=== PATIENT | female | born 1945 | race Caucasian/White ===

== ENCOUNTER → 2021-11-16 | Outpatient (CLI) | payer MEDICARE, OTHER, SELFPAY ==
[2021-11-16 12:39] LABS: Hematocrit 38.3 % (37-47); Hemoglobin 12.3 g/dL (12.0-15.0); Mean Corp Hgb Conc 32.1 g/dL (32-36); Mean Corpuscular Hgb 30.4 pg (27.0-32.0); Mean Corpuscular Volume 94.8 fL (81-99); Mean Platelet Vol. 10.8 fl (6.2-12.0); Platelet Count 223 K/mm3 (150-450); RBC Distribution Width CV 12.8 % (11.6-14.6); RBC Distribution Width SD 44.4 fl (35.1-43.9); Red Blood Count 4.04 M/mm3 (4.2-5.4); White Blood Count 6.5 K/mm3 (4.4-11.0)
[2021-11-16 13:21] LABS: Vitamin B12 874 pg/mL (211-911)
[2021-11-16 13:42] LABS: ALB/GLOB Ratio 1.2 RATIO (0.9-2.4); AST(SGOT) 32 U/L (15-37); Alanine Aminotransfer ALT/SGPT 39 U/L (13-56); Albumin, Serum 3.5 g/dL (3.2-5.0); Alkaline Phosphatase 48 U/L (45-117); Anion Gap 5 (5-15); BUN 16 mg/dL (7-18); BUN/Creat Ratio 21.2 RATIO (10-20); Calcium,Total 9.2 mg/dL (8.5-10.1); Chloride 105 mmol/L (98-107); Creatinine, Serum 0.76 mg/dL (0.55-1.02); EST Glomerular Filtration Rate 79 mL/min (>60); Est Glom Filt Rate - Afr Amer 95 mL/min (>60); Glucose 88 mg/dL (74-106); Potassium 3.6 mmol/L (3.5-5.1); Protein, Total 6.5 g/dL (6.4-8.2); Sodium Level 141 mmol/L (136-145); Thyroid Stim Hormone (TSH) 1.42 uIU/mL (0.358-3.74)
[2021-11-21 16:09] LABS: Free Kappa Light Chains 13.1 mg/L (3.3-19.4); Free Lambda Light Chains 9.3 mg/L (5.7-26.3)
[2021-11-22 12:25] LABS: Vitamin B1, Thiamine 196.1 nmol/L (66.5-200.0)
== END | disposition home or self-care (01) ==
LOC: MTLAB 09:55
PROVIDERS: Referring Provider Psychiatry & Neurology Neurology; Visit Provider Psychiatry & Neurology Neurology
DX: I10 Essential (primary) hypertension (principal); G62.9 Polyneuropathy, unspecified
CPT/HCPCS: 36415; 80053; 82607; 82746; 83883; 84425; 84443; 85027

== ENCOUNTER → 2023-03-14 | Outpatient (CLI) | payer MEDICARE, OTHER, SELFPAY ==
[2023-03-14 17:34] LABS: Hematocrit 42.4 % (37-47); Mean Corpuscular Hgb 31.5 pg (27.0-32.0); Mean Corpuscular Volume 95.5 fL (81-99); Platelet Count 324 K/mm3 (150-450); RBC Distribution Width CV 12.4 % (11.6-14.6); RBC Distribution Width SD 43.9 fl (35.1-43.9); Red Blood Count 4.44 M/mm3 (4.2-5.4); White Blood Count 15.3 K/mm3 (4.4-11.0)
[2023-03-14 17:44] LABS: Erythrocyte Sedimentation Rate 4 mm/hr (0-30)
[2023-03-14 18:25] LABS: Ionized Calcium 5.19 mg/dL (4.36-5.20)
[2023-03-14 18:44] LABS: ALB/GLOB Ratio 1.1 RATIO (0.9-2.4); AST(SGOT) 19 U/L (15-37); Alanine Aminotransfer ALT/SGPT 30 U/L (13-56); Albumin, Serum 3.6 g/dL (3.2-5.0); Alkaline Phosphatase 95 U/L (45-117); Anion Gap 8 (5-15); BUN 32 mg/dL (7-18); CPK Total, Creatine Kinase 66 U/L (26-192); CRP < 2.90 mg/L (0.0-3.0); Calcium,Total 9.4 mg/dL (8.5-10.1); Chloride 104 mmol/L (98-107); Creatinine, Serum 0.89 mg/dL (0.55-1.02); EST Glomerular Filtration Rate 65 mL/min (>60); Est Glom Filt Rate - Afr Amer 79 mL/min (>60); Free T3 1.9 pg/mL (2.18-3.98); Globulin 3.2 g/dL (2.2-4.2); Glucose 96 mg/dL (74-106); Magnesium 2.7 mg/dL (1.6-2.6); Phosphorus 3.3 mg/dL (2.5-4.9); Potassium 3.7 mmol/L (3.5-5.1); Protein, Total 6.8 g/dL (6.4-8.2); Sodium Level 139 mmol/L (136-145); T4 Free Direct 0.97 ng/dL (0.76-1.46); Thyroid Stim Hormone (TSH) 1.42 uIU/mL (0.358-3.74)
[2023-03-14 23:54] LABS: Ionized Calcium Order ORDER TUBE
[2023-03-15 09:52] LABS: PTHIN 35.1 pg/mL (18.4-80.1)
[2023-03-18 11:08] LABS: Aldolase 4.5 U/L (3.3-10.3); Myoglobin, Serum 43 ng/mL (25-58)
== END | disposition home or self-care (01) ==
LOC: MTLAB 15:53
PROVIDERS: Referring Provider Psychiatry & Neurology Neurology; Visit Provider Psychiatry & Neurology Neurology
DX: G62.9 Polyneuropathy, unspecified (principal); M11.20 Other chondrocalcinosis, unspecified site; M79.7 Fibromyalgia; E03.9 Hypothyroidism, unspecified
CPT/HCPCS: 36415; 80053; 82085; 82330; 82550; 83735; 83874; 83970; 84100; 84439; 84443; 84481; 85027; 85652; 86140

== ENCOUNTER → 2023-04-08 | Outpatient (CLI) | payer MEDICARE, OTHER, SELFPAY ==
--- NOTE | 2023-04-08 14:25 | RAD_ITS ---
STUDY: X-RAY - PELVIS AND RIGHT HIP REASON FOR EXAM: Female, 78 years old. Right hip pain. Pseudogout. TECHNIQUE: 3 views of the pelvis and hip. COMPARISON: None. FINDINGS: There is a non-specific bowel gas pattern. Diffuse soft tissue calcification projected over the gluteal muscles bilaterally. Osteopenia. Normal bilateral iliac wings, sacroiliac joints and visualized sacrum. Normal bilateral superior and inferior pubic rami. Normal pubic symphysis. Normal bilateral ischial tuberosities. Posterior fusion of L4-S1. Intramedullary sidney with proximal interlocking cancellus with soft tissue ossification adjacent to the proximal right femur. Mild arthrosis of the left hip. RAD/HIP, UNI W/ Pelvis 2-3 Views IMPRESSION: Osteopenia with postsurgical changes as described. Diffuse soft tissue ossification about both gluteal muscle regions. Electronically Signed: Kp Cobos MD at 15:32 EST ,
[2023-04-08] MEDS: Lidocaine 2% (5ml sdv) 5 ML VIAL.MPF INFILT (14:40)
--- NOTE | 2023-04-08 14:59 | PCM.OP.PRO ---
Procedure Report Date of Procedure: 04/08/23 Assessment & Plan Assessment/Plan (1) Right hip pain: PLAN: PROCEDURE: Fluoroscopic guided right hip aspiration ORDERING PROVIDER: Dr. Monroy INDICATION: Female, 78 years old. Right hip pain, history of recurrent right hip effusion. PROVIDER: MIGUELANGEL Mckeon CONSENT: The procedure as well as the benefits and possible complications including bleeding and infection were explained to the patient. Informed consent was obtained. TECHNIQUE: The patient was positioned supine. The overlying skin was prepped and draped in the usual sterile fashion. Following injection of local anesthetic with 2% lidocaine and under direct fluoroscopic guidance, a 22-gauge spinal needle was placed into the right hip. 2 cc of Isovue 300 was injected for confirmation. Despite confirmation of needle placement in joint space and attempt to reposition the aspiration needle within the joint space, no fluid was able to be aspirated. The needle was removed and a Band-Aid was applied. All elements of maximal sterile barrier technique followed. Patient tolerated procedure well. IMPRESSION: 1. Successful fluoroscopic guided needle placement in right hip without fluid to aspirate. 2. Patient revealed during exam that previous aspirations were done under ultrasound guidance, which would be a beneficial modality to evaluate for a pocket of fluid, given the complexity of the patient's right hip joint with orthopedic hardware. Procedures Radiology Radiology Xray Procedures: Inj Asp major Joint - Hip, Knee
== END | disposition home or self-care (01) ==
LOC: RAD 14:09
PROVIDERS: Referring Provider Psychiatry & Neurology Neurology; Visit Provider Psychiatry & Neurology Neurology
DX: M11.20 Other chondrocalcinosis, unspecified site (principal); M25.551 Pain in right hip
CPT/HCPCS: 20610; 73502; 77002

== ENCOUNTER → 2024-09-02 | Outpatient (CLI) | payer MEDICARE, OTHER, SELFPAY ==
--- NOTE | 2024-09-02 11:43 | RAD_ITS ---
PROCEDURE: RIBS UNIL 2V NO CXR, 09/02/2024 REASON FOR EXAM: RIGHT LOWER RIB PAIN S/P FALL MAY 2024 TECHNIQUE: Two PA oblique views of the RIGHT ribs were obtained. COMPARISON: None FINDINGS: Sensitivity for nondisplaced fracture limited by demineralization and soft tissue attenuation. 6 No visible acute displaced rib fracture. No visible pneumothorax. Platelike likely atelectasis/scarring in the RIGHT lung base. Degenerative changes of the RIGHT shoulder including evidence of rotator cuff pathology. Partially imaged lumbar spinal fusion, not well evaluated. Prominent S shaped thoracolumbar scoliosis and multilevel spondylosis, not well evaluated. RIGHT upper quadrant surgical clips. Atherosclerosis. Question thoracic chronic granulomatous disease. RAD/Ribs Unil 2V No CXR IMPRESSION: 1. Demineralization without visible acute displaced rib fracture or visible pne umothorax. 2. Additional description as above. Reading Location: [id number]
[2024-09-02 16:25] LABS: Vitamin B12 967 pg/mL (180-914)
[2024-09-05 16:08] LABS: Vitamin D 1,25-Dihydroxy 58.1 pg/mL (24.8-81.5)
== END | disposition home or self-care (01) ==
LOC: MTLAB 11:43
PROVIDERS: Referring Provider Psychiatry & Neurology Neurology; Visit Provider Psychiatry & Neurology Neurology
DX: M81.0 Age-related osteoporosis without current pathological fracture (principal); E03.9 Hypothyroidism, unspecified; R53.83 Other fatigue; R07.81 Pleurodynia
CPT/HCPCS: 36415; 71100; 82607; 82652; 84439; 84443

== ENCOUNTER → 2024-09-30 | Outpatient (CLI) | payer MEDICARE, OTHER, SELFPAY ==
--- NOTE | 2024-09-30 14:12 | NEURO ---
NCS and/or EMG Patient Report Ordering Doctor: Doug Monroy DATE OF SERVICE: 09/30/24 Kaylynn presents with complaints of loss of balance and weakness in the arms and legs. She reports intermittent numbness and tingling. Electrodiagnostic findings: Left median motor nerve demonstrates prolonged latency with reduced amplitude and reduced conduction velocity. Left ulnar motor response within normal limits, including conduction across the elbow. Left peroneal motor nerve demonstrates prolonged latency with reduced amplitude and reduced conduction velocity. Left tibial motor nerve demonstrates prolonged latency with reduced amplitude and reduced conduction velocity. Prolonged left median sensory latency at the wrist. Left ulnar and radial sensory responses are within normal limits with normal conduction velocities. Absent left sural and superficial peroneal responses. H reflex prolonged on the left side. Prolonged left median F?wave. Needle EMG testing was performed the left upper and left lower limb. Needle EMG demonstrated 1+ fibrillations in the left biceps. Motor units of increased amplitude and duration in the left peroneus longus and left tibialis anterior. Electrodiagnostic impression: This an abnormal study. 1. Electrodiagnostic finding is suggestive of left-sided median mononeuropathy, consistent with a moderate left carpal tunnel syndrome 2. 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 EMG\NCS findings do not support a diagnosis of CIDP. 3. No electrodiagnostic evidence for cervical or lumbar radiculopathy. Multi Select Codes Neurology Neurology Interp Codes: 04369-93 Musc test done w/n test comp (interp) (2) and 83984-42 Nrv cndj test 9-10 studies (interp)
== END | disposition home or self-care (01) ==
LOC: PSN 12:30
PROVIDERS: Referring Provider Psychiatry & Neurology Neurology; Visit Provider Psychiatry & Neurology Neurology
DX: G56.02 Carpal tunnel syndrome, left upper limb (principal); G62.9 Polyneuropathy, unspecified; R20.0 Anesthesia of skin
CPT/HCPCS: 95886; 95911